=== PATIENT | female | born 1975 | race Two or more races ===

== ENCOUNTER 2024-05-21 11:45 | Day surgery (SDC) | payer MEDICAID, SELFPAY ==
[2024-05-20 13:19] VITALS: BMI 25.4
[2024-05-21] VITALS (11 sets, daily range): BP systolic 99–138; BP diastolic 64–92; PULSE 56–85; RESP 14–24; TEMP 36.2–36.7; O2SAT 96–100; BMI 24.7
[2024-05-21 12:21] LABS: HCG Qualitative,Urine Negative
[2024-05-21] MEDS: RINGERS LACTATED 1000 ML 1,000 ML 100 ML IV (13:21)
[2024-05-21] MEDS: fentaNYL CIT INJ 50 mCg/ML AMP 2ML (ASD USE ONLY) IV (13:30)
[2024-05-21] MEDS: DiphenhydrAMINE INJ 50 MG/ML VIAL 25 MG IV (13:32)
[2024-05-21] MEDS: MIDAZOLAM INJ 1 MG/ML VIAL 2 ML (ASD USE ONLY) 2 MG IV (13:34)
[2024-05-21] MEDS: LIDOCAINE JELLY 2% (Urojet) 10 ML TUBE TOP (13:37)
== END 2024-05-21 14:22 | disposition home or self-care (01) ==
PROVIDERS: PCP Dentist General Practice; Referring Provider Surgery; Visit Provider Surgery
PROC: 0DBE8ZX Excision of Large Intestine, Via Natural or Artificial Opening Endoscopic, Diagnostic (ICD-10-PCS; CPT 45380; principal; 2024-05-21 13:45)
DX: Z12.11 Encounter for screening for malignant neoplasm of colon (principal)
CPT/HCPCS: 45378; 81025; J1200; J2250; J3010; J7120